=== PATIENT | female | born 1950 | race Caucasian/White ===

== ENCOUNTER 2018-02-25 21:34 | Emergency (ER) | payer MEDICARE, OTHER ==
[~2018-02-25] VITALS: Ht 160 cm; Wt 68.2 kg
[~2018-02-25 21:34] MED LIST: CHOL500045 PO; FLUP5 PO; GEMF600T5 PO; LISI10TA PO; METF-444 PO; QUET50XR PO; VITAD1000; ZOLP10TA7 PO
[2018-02-25 21:39] VITALS: BP 160/70
[2018-02-25] MEDS ORDERED: ATOR20TA86 PO (21:52)
[2018-02-25] MEDS ORDERED: SITA50 PO (21:52)
[2018-02-25] MEDS ORDERED: LAMO25 PO (21:52)
[2018-02-25] MEDS ORDERED: QUET100T PO (21:52)
[2018-02-25] MEDS ORDERED: BACL10TA PO (21:52)
[2018-02-25] MEDS ORDERED: TRAZ150 PO (21:52)
[2018-02-25] MEDS ORDERED: OXYB5 PO (21:52)
[2018-02-25] MEDS ORDERED: DOCU250C90 PO (21:52)
[2018-02-25] MEDS ORDERED: CHOL50004 PO (21:52)
[2018-02-25] MEDS ORDERED: ASPI81 PO (21:52)
[2018-02-25] MEDS ORDERED: ARIP5TAB8 PO (21:52)
[2018-02-25 21:54] LABS: GLUCOSE,POINT OF CARE 119 MG/DL (70-110)
[2018-02-25 22:04] LABS: BASOPHILS % (AUTO) 0.3 % (0.0-2.0); EOSINOPHILS % (AUTO) 2.6 % (1.0-6.0); HEMATOCRIT 40.8 % (36-46); HEMOGLOBIN 13.6 g/dL (12.0-16.0); LYMPHOCYTES # (AUTO) 2.5 K/uL (1.0-4.8); LYMPHOCYTES % (AUTO) 27.8 % (22.0-44.0); MEAN CORPUSCULAR HEMOGLOBIN 31.4 pg (26.0-34.0); MEAN CORPUSCULAR HGB CONC 33.3 G/dL (31.0-37.0); MEAN CORPUSCULAR VOLUME 94 fL (80-100); MONOCYTES # (AUTO) 0.9 K/uL (0.1-1.0); MONOCYTES % (AUTO) 9.5 % (2.0-9.0); NEUTROPHILS # (AUTO) 5.4 K/uL (1.8-7.7); NEUTROPHILS % (AUTO) 59.8 % (40.0-70.0); PLATELET COUNT (AUTO) 216 K/uL (150-450); RED BLOOD CELL COUNT(AUTO) 4.33 MIL/uL (4.00-5.20); RED CELL DISTRIBUTION WIDTH 14.7 % (11.5-14.5)
[2018-02-25 22:13] LABS: ANION GAP 7 mmol/L (8-16); CALCIUM, TOTAL 9.3 mg/dL (8.8-10.5); CARBON DIOXIDE 31 mmol/L (22-29); CHLORIDE 103 mmol/L (98-107); CREATININE 1.23 mg/dL (0.60-1.30); GLOMERULAR FILTR. RATE CALC 44 mL/min (>60); GLUCOSE,RANDOM 125 mg/dL (70-110); POTASSIUM 4.4 mmol/L (3.5-5.1); SODIUM SERUM 141 mmol/L (136-145); UREA NITROGEN, BLOOD 22 mg/dL (7-18)
[2018-02-25 22:19] LABS: ALANINE AMINOTRANSFERASE 21 U/L (12-78); ALBUMIN 3.9 g/dL (3.4-5.0); ALKALINE PHOSPHATASE 102 U/L (46-116); ASPARTATE AMINOTRANSFERASE 25 U/L (15-37); BILIRUBIN,TOTAL 0.3 mg/dL (0.1-1.0); TOTAL PROTEIN, SERUM 7.4 g/dL (6.4-8.2)
[2018-02-25 23:31] LABS: AMPHET/METH SCREEN,URINE NEGATIVE (NEGATIVE); BARBITURATE SCREEN, URINE NEGATIVE (NEGATIVE); BENZODIAZEPINES SCREEN,URINE NEGATIVE (NEGATIVE); CANNABINOID SCREEN,URINE NEGATIVE (NEGATIVE); COCAINE SCREEN,URINE NEGATIVE (NEGATIVE); METHADONE SCREEN, URINE NEGATIVE (NEGATIVE); OPIATE SCREEN,URINE NEGATIVE (NEGATIVE)
[2018-02-25 23:32] LABS: PHENCYCLIDINE SCREEN,URINE NEGATIVE (NEGATIVE)
[2018-02-26] MEDS ORDERED: LORazepam 2 MG/ML VIAL IM ONE (01:30)
[2018-02-26] MEDS ORDERED: DiphenhydrAMINE HCL 50 MG/ML VIAL IM ONE (01:30)
[2018-02-26 01:38] LABS: APPEARANCE,URINE TURBID (CLEAR); BILIRUBIN,URINE NEGATIVE (NEGATIVE); GLUCOSE, URINE (UA) NEGATIVE (NEGATIVE); KETONES,URINE TRACE mg/dL (NEGATIVE); LEUKOCYTE ESTERASE ,URINE LARGE (NEGATIVE); NITRATE,URINE POSITIVE (NEGATIVE); OCCULT BLOOD,URINE MODERATE (NEGATIVE); PROTEIN,URINE TRACE (NEGATIVE); UROBILINOGEN,URINE 0.2 mg/dL (<=1.0)
[2018-02-26 01:44] LABS: BACTERIA,URINE Moderate /HPF (None Seen); WBC,URINE Full Field /HPF (0-5)
[2018-02-26 01:45] LABS: SQUAMOUS EPITHELIAL CELL,UR Rare /LPF (None Seen)
== END 2018-02-26 02:19 | disposition home or self-care (01) ==
LOC: EMS 21:36
DX: G47.00 Insomnia, unspecified (principal); N39.0 Urinary tract infection, site not specified; R45.1 Restlessness and agitation; F17.210 Nicotine dependence, cigarettes, uncomplicated; E11.9 Type 2 diabetes mellitus without complications; E78.00 Pure hypercholesterolemia, unspecified; I10 Essential (primary) hypertension; F20.9 Schizophrenia, unspecified; Z88.8 Allergy status to other drugs, medicaments and biological substances; Z79.84 Long term (current) use of oral hypoglycemic drugs; Z79.82 Long term (current) use of aspirin; Z79.899 Other long term (current) drug therapy
CPT/HCPCS: 36415; 80053; 80307; 81001; 82962; 85025; 87077; 87086; 87186; 96372; 99284; G0480; J1200; J2060

== ENCOUNTER 2020-08-21 21:42 | Emergency (ER) | payer MEDICARE, OTHER ==
[~2020-08-21] VITALS: Ht 160 cm; Wt 81.8 kg
[~2020-08-21 21:42] MED LIST changes: +ARIP5TAB37 PO; +ASPI-1450 PO; +ATOR20TA86 PO; +BACL10TA PO; +CHOL500013 PO; -CHOL500045 PO; +DOCU250C21 PO; -FLUP5 PO; -GEMF600T5 PO; +LAMO25TA25 PO; -LISI10TA PO; -METF-444 PO; +OXYB5 PO; +QUET100T PO; -QUET50XR PO; +SITA50 PO; +TRAZ150 PO; -VITAD1000; -ZOLP10TA7 PO
[2020-08-21 23:15] VITALS: BP 130/78
== END 2020-08-22 00:31 | disposition home or self-care (01) ==
LOC: EMS 21:42
DX: F25.9 Schizoaffective disorder, unspecified (principal); F17.210 Nicotine dependence, cigarettes, uncomplicated; E11.9 Type 2 diabetes mellitus without complications; E78.00 Pure hypercholesterolemia, unspecified; I10 Essential (primary) hypertension; Z88.8 Allergy status to other drugs, medicaments and biological substances
CPT/HCPCS: 99284; Z7502

== ENCOUNTER 2020-10-20 12:04 | Emergency (ER) | payer MEDICARE, OTHER ==
[~2020-10-20] VITALS: Ht 160 cm; Wt 93.2 kg
[~2020-10-20 12:04] MED LIST changes: +DOCU-378 PO; -DOCU250C21 PO; -OXYB5 PO; +OXYB5TAB20 PO
[2020-10-20 12:19] VITALS: BP 138/88
== END 2020-10-20 15:49 | disposition left against medical advice (07) ==
LOC: EMS 12:06
DX: F25.9 Schizoaffective disorder, unspecified (principal); F17.210 Nicotine dependence, cigarettes, uncomplicated; E11.9 Type 2 diabetes mellitus without complications; I10 Essential (primary) hypertension; E78.00 Pure hypercholesterolemia, unspecified
CPT/HCPCS: 82962; 99283

== ENCOUNTER 2021-07-24 12:37 | Emergency (ER) | payer MEDICARE, OTHER ==
[~2021-07-24] VITALS: Ht 160 cm; Wt 90.9 kg
[~2021-07-24 12:37] MED LIST changes: -TRAZ150 PO; +TRAZ150T80 PO
[2021-07-24] MEDS ORDERED: TRI115O TP (14:00)
[2021-07-24 14:28] VITALS: BP 151/69
== END 2021-07-24 15:16 | disposition home or self-care (01) ==
LOC: EMS 12:37
DX: L25.9 Unspecified contact dermatitis, unspecified cause (principal); I10 Essential (primary) hypertension; E11.9 Type 2 diabetes mellitus without complications; E78.00 Pure hypercholesterolemia, unspecified; F20.9 Schizophrenia, unspecified; F17.210 Nicotine dependence, cigarettes, uncomplicated; Z88.8 Allergy status to other drugs, medicaments and biological substances; Z79.899 Other long term (current) drug therapy
CPT/HCPCS: 99283; Z7502

== ENCOUNTER 2021-10-10 08:43 | Emergency (ER) | payer MEDICARE, OTHER ==
[~2021-10-10] VITALS: Ht 167.6 cm; Wt 69.0 kg
[~2021-10-10 08:43] MED LIST changes: +TRI115O TP
[2021-10-10 08:59] VITALS: BP 166/89
== END 2021-10-10 11:24 | disposition home or self-care (01) ==
LOC: EMS 08:45
DX: F20.9 Schizophrenia, unspecified (principal); E11.9 Type 2 diabetes mellitus without complications; E78.00 Pure hypercholesterolemia, unspecified; F17.210 Nicotine dependence, cigarettes, uncomplicated; I10 Essential (primary) hypertension
CPT/HCPCS: 82962; 99283; 99284

== ENCOUNTER 2022-09-12 05:52 | Emergency (ER) | payer MEDICARE, OTHER ==
[~2022-09-12] VITALS: Ht 160 cm; Wt 72.7 kg
[~2022-09-12 05:52] MED LIST changes: +ATOR20TA PO; -ATOR20TA86 PO; -LAMO25TA25 PO; +LAMO25TA36 PO
[2022-09-12 07:44] VITALS: TEMP 98.6
[2022-09-12 08:06] LABS: BASOPHILS % (AUTO) 0.7 % (0.0-2.0); EOSINOPHILS % (AUTO) 7.2 % (1.0-6.0); HEMATOCRIT 44.3 % (36-46); LYMPHOCYTES # (AUTO) 2.1 K/uL (1.0-4.8); LYMPHOCYTES % (AUTO) 25.9 % (22.0-44.0); MEAN CORPUSCULAR HGB CONC 33.8 G/dL (31.0-37.0); MEAN CORPUSCULAR VOLUME 95 fL (80-100); MONOCYTES # (AUTO) 0.8 K/uL (0.1-1.0); MONOCYTES % (AUTO) 9.3 % (2.0-9.0); NEUTROPHILS # (AUTO) 4.6 K/uL (1.8-7.7); NEUTROPHILS % (AUTO) 56.9 % (40.0-70.0); PLATELET COUNT (AUTO) 188 K/uL (150-450); RED BLOOD CELL COUNT(AUTO) 4.68 MIL/uL (4.00-5.20); RED CELL DISTRIBUTION WIDTH 14.7 % (11.5-14.5)
[2022-09-12 08:16] LABS: ANION GAP 9 mmol/L (8-16); CALCIUM, TOTAL 9.3 mg/dL (8.8-10.5); CARBON DIOXIDE 28 mmol/L (22-29); CHLORIDE 103 mmol/L (98-107); CREATININE 1.12 mg/dL (0.60-1.30); GLOMERULAR FILTR. RATE CALC 48 mL/min (>60); GLUCOSE,RANDOM 129 mg/dL (70-110); POTASSIUM 4.1 mmol/L (3.5-5.1); SODIUM SERUM 140 mmol/L (136-145)
[2022-09-12 08:23] LABS: ALANINE AMINOTRANSFERASE 21 U/L (12-78); ALBUMIN 3.7 g/dL (3.4-5.0); ALKALINE PHOSPHATASE 139 U/L (46-116); ASPARTATE AMINOTRANSFERASE 22 U/L (15-37); BILIRUBIN,TOTAL 0.3 mg/dL (0.1-1.0); TOTAL PROTEIN, SERUM 7.1 g/dL (6.4-8.2)
[2022-09-12 10:15] LABS: COVID AG,FIA SOURCE NASAL SWAB
[2022-09-12] MEDS ORDERED: LORazepam 1 MG TABLET PO ONE (10:15)
[2022-09-12 14:43] VITALS: BP 150/72; PULSE 62; RESP 18
== END 2022-09-12 15:21 | disposition short-term general hospital (02) ==
LOC: EMS 05:52
DX: F20.9 Schizophrenia, unspecified (principal); E11.9 Type 2 diabetes mellitus without complications; E78.00 Pure hypercholesterolemia, unspecified; I10 Essential (primary) hypertension; F17.210 Nicotine dependence, cigarettes, uncomplicated; Z88.8 Allergy status to other drugs, medicaments and biological substances; Z20.822 Contact with and (suspected) exposure to COVID-19
CPT/HCPCS: 99285; 87426; 80053; 82962; 85025; 36415; G0480

== ENCOUNTER 2023-03-22 21:54 | Emergency (ER) | payer MEDICARE, OTHER ==
[~2023-03-22] VITALS: Ht 160 cm; Wt 80.5 kg
[2023-03-22 22:33] VITALS: TEMP 98.6
[2023-03-23 00:04] LABS: BASOPHILS % (AUTO) 0.5 % (0.0-2.0); EOSINOPHILS % (AUTO) 6.9 % (1.0-6.0); HEMATOCRIT 42.7 % (36-46); HEMOGLOBIN 14.5 g/dL (12.0-16.0); LYMPHOCYTES # (AUTO) 3.5 K/uL (1.0-4.8); LYMPHOCYTES % (AUTO) 36.7 % (22.0-44.0); MEAN CORPUSCULAR HEMOGLOBIN 33.2 pg (26.0-34.0); MEAN CORPUSCULAR VOLUME 98 fL (80-100); MONOCYTES # (AUTO) 0.8 K/uL (0.1-1.0); MONOCYTES % (AUTO) 8.4 % (2.0-9.0); NEUTROPHILS # (AUTO) 4.6 K/uL (1.8-7.7); NEUTROPHILS % (AUTO) 47.5 % (40.0-70.0); PLATELET COUNT (AUTO) 209 K/uL (150-450); RED BLOOD CELL COUNT(AUTO) 4.37 MIL/uL (4.00-5.20); RED CELL DISTRIBUTION WIDTH 13.6 % (11.5-14.5); WHITE BLOOD COUNT (AUTO) 9.6 K/uL (4.5-11.0)
[2023-03-23 00:12] LABS: CALCIUM, TOTAL 9.1 mg/dL (8.8-10.5); CREATININE 1.2 mg/dL (0.60-1.30); POTASSIUM 4.1 mmol/L (3.5-5.1)
[2023-03-23 00:18] LABS: ALBUMIN 3.3 g/dL (3.4-5.0); BILIRUBIN,TOTAL 0.2 mg/dL (0.1-1.0); TOTAL PROTEIN, SERUM 6.4 g/dL (6.4-8.2)
[2023-03-23 01:33] VITALS: BP 101/63; PULSE 79; RESP 16
== END 2023-03-23 02:15 | disposition home or self-care (01) ==
LOC: EMS 21:55
DX: F20.9 Schizophrenia, unspecified (principal); I10 Essential (primary) hypertension; E11.9 Type 2 diabetes mellitus without complications; E78.00 Pure hypercholesterolemia, unspecified; F17.210 Nicotine dependence, cigarettes, uncomplicated; Z88.8 Allergy status to other drugs, medicaments and biological substances
CPT/HCPCS: 80053; 83690; 85025; 93005; 99284